=== PATIENT | female | born 1970 | race Caucasian/White ===

== ENCOUNTER 2023-10-01 19:08 | Emergency (ER) | payer OTHER, SELFPAY ==
[2023-10-01 19:10] VITALS: BP 203/103
[2023-10-01 19:32] LABS: % Basophils 0.4 % (0-2); % Immature Granulocytes 0.6 % (0-0.5); % Lymphocytes 35.2 % (20.5-51.1); % Monocytes 6.3 % (1.7-9.3); % Neutrophils 56.5 % (42.2-75.2); Absolute Eosinophils 0.1 10^3/uL (0-0.7); Absolute Immature Granulocytes 0.1 10^3/uL (0-0.05); Absolute Lymphocytes 3.5 10^3/uL (1.2-3.4); Absolute Monocytes 0.6 10^3/uL (0.1-0.6); Absolute Neutrophils 5.5 10^3/uL (1.4-6.5); Hematocrit 38.8 % (37.0-47.0); Hemoglobin 13.4 g/dL (12.0-16.0); Mean Corp Hgb Conc. 34.5 g/dL (33.0-37.0); Mean Corpuscular Hgb 33.2 pg (27.0-31.0); Mean Platelet Volume 9.6 fL (7.4-10.4); Nucleated Red Blood Cells % 0 %; Platelet Count 274 10^3/uL (130-400); Red Blood Cell Count 4.04 10^6/uL (4.20-5.40); Red Cell Dist. Width 11.9 % (11.5-14.5); White Blood Cell Count 9.8 10^3/uL (4.8-10.8)
[2023-10-01 19:53] LABS: HCG, Serum Qualitative Screen Negative
[2023-10-01 19:56] LABS: Troponin I < 0.012 ng/ml
[2023-10-01 19:57] LABS: ALT (SGPT) 41 U/L (0-35); AST (SGOT) 38 U/L (14-36); Albumin 4.9 g/dl (3.5-5.0); Alkaline Phosphatase 69 U/L (38-126); Blood Urea Nitrogen 16 mg/dl (7-17); Calcium 10.1 mg/dl (8.4-10.2); Carbon Dioxide 26 mmol/L (22-30); Chloride 102 mmol/L (98-107); Glucose 232 mg/dl (70-99); Potassium 4.3 mmol/L (3.5-5.1); Sodium 139 mmol/L (135-145); Total Bilirubin 0.4 mg/dl (0.2-1.3); Total Protein 8.2 g/dl (6.3-8.2); eGFR > 60.00
[2023-10-01 23:00] VITALS: BP 177/98
--- NOTE | 2023-10-01 23:26 | ED.GENMED ---
History of Present Illness
General
Chief Complaint: Cardiac Symptoms
Source: patient
Exam Limitations: none
Time Seen by Provider: 10/01/23 22:52
Travel History
Have you had any contact with someone who has COVID-19?: No
Do you have any symptoms of coronavirus? Fever > 100 degrees, chills, cough, shortness of breath, sore throat, loss of taste or smell, muscle aches, or headache?: No
History of Present Illness
History of Present Illness:
This is a 52 year old female that comes in with c/o pain in the left shoulder/back area that goes down into her left arm. States that he arm felt heavy and it has been keeping her up all night. States that the pain has been constant. Patient took
Ibuprofen only twice since Sunday. States that there is a burning in the left arm. Denies any fever, chills, chest pain, SOB, abd pain, nausea, vomiting, diarrhea, headache, dizziness, urinary burning.
Past History
Past History
ED Past Medical History: HTN and IDDM
ED Past Surgical History: Cholecystectomy
Review of Systems
Review of Systems
All Other Systems: ROS reviewed and negative except as documented in HPI and ROS
Constitutional: Reports no symptoms; Denies fever or chills
Respiratory: Reports no symptoms; Denies cough or trouble breathing
Cardiac: Denies chest pain
ABD/GI: Reports no symptoms; Denies abdominal pain, nausea, vomiting or diarrhea
: Reports no symptoms; Denies dysuria, frequency or urgency
Musculoskeletal: Reports other (Pain left posterior shoulder into the left upper arm, Burning)
Skin: Reports no symptoms
Neurological: Reports no symptoms; Denies dizzy or headache
Psychiatric: Reports no symptoms
Phy Exam
General Physical Exam
General Presentation: no apparent distress
General age: appears stated age
General Skin: warm and dry
General Habitus: normal
General Mental: alert
General Hydration: appears well hydrated
ENT Exam
ENT Exam: TM's normal, pharynx normal and neck supple
Eye Exam
Eye Exam: EOMI
Cardiovascular Exam
Cardiovascular Exam: regular rate/rhythm, no edema, no murmur and normal peripheral pulses
Pulmonary Exam
Pulmonary Exam: lungs clear, no respiratory distress, no rales, chest non tender, no crackles, no rhonchi, no wheezing and no cough
Gastrointestinal Exam
Gastrointestinal Exam: normal bowel sounds, non tender, soft, no organomegaly, no pulsatile mass and non distended
Musculoskeletal Exam
Musculoskeletal Exam: full ROM, no edema and other (Tenderness to palpation over the Trapeziums muscle on the left)
Skin Exam
Skin Exam: normal color, warm/dry, no rash and no petechia
Course
Orders/Labs/Results
Orders:
Orders
10/01/23 19:13
Electrocardiogram (*1) Urgent
Reason for Study: Other
Other Reason for Exam: LEFT NECK/ARM PAIN
EKG- Treatment ONCE
Test Result ONCE
10/01/23 19:16
CMP [Comprehensive Metabolic Panel] Urgent
Complete Blood Count/With Diff Urgent
HCG, Serum Qualitative Screen Urgent
Troponin I Urgent
10/01/23 23:25
Troponin I Urgent
CR Chest - 2 Views Urgent
Comment:
Reason For Exam: Left shoulder and arm pain, Chest pain
10/01/23 23:27
Acetaminophen [Tylenol] 1,000 mg PO NOW STA
Ketorolac [Toradol] 30 mg IV NOW STA
10/02/23 00:08
EKG [Electrocardiogram (*1)] Urgent
Reason for Study: Other
Other Reason for Exam: with troponin redraw
EKG- Treatment ONCE
Abnormal Lab Results
10/01/23
19:16
RBC 4.04 L 10^6/uL
(4.20-5.40)
MCH 33.2 H pg
(27.0-31.0)
Abs Immat Gran (auto) 0.1 H 10^3/uL
(0-0.05)
Absolute Lymphs (auto) 3.5 H 10^3/uL
(1.2-3.4)
Immature Gran % 0.6 H %
(0-0.5)
Creatinine 0.5 L mg/dL
(0.6-1.0)
Glucose 232 H mg/dl
(70-99)
AST 38 H U/L
(14-36)
ALT 41 H U/L
(0-35)
10/01/23 19:16
10/01/23 19:16
Glucose nonfasting. AST/ALT slightly elevated. Troponin <0.012, HCG negative.
Second Troponin <0.012,
Vital Signs
Initial and Last Documented VS:
Initial Vital Signs
Temp Pulse Resp BP Pulse Ox
98 F 110 22 203/103 100
10/01/23 19:10 10/01/23 19:10 10/01/23 19:10 10/01/23 19:10 10/01/23 19:10
Last Documented Vital Signs
Temp Pulse Resp BP Pulse Ox
98 F 84 16 146/70 99
10/01/23 19:10 10/02/23 00:18 10/02/23 00:18 10/02/23 00:18 10/02/23 00:18
MDM/Problems Addressed
Differential Diagnosis Includes:
Musculoskeletal pain, Coronary syndrome,
MDM/Problems Addressed:
This is a 52 year old female that comes in with c/o left shoulder pain that goes into the left upper arm. States that there is a burning pain in the arm and it has been constant since Sunday.
Will check labs. Troponin, Chest x-ray and ECG.
Repeat ECG: Rate 86, NSR, Normal axis. Normal QRS, ST depression V4, V5,
Back into see patient. Explained that her Chest X-ray was normal along with her second troponin. This may be musculoskeletal but due to the left arm continued pain and her diabetes, will place patient on the cardiology hot line. Patient can use
Tylenol 1000mg every 6 hours for pain. Heat or ice to the shoulder. Follow up with the family doctor. Return with increased or changing pain.
Chronic conditions affecting care: DM
Acute Exacerbation and/or Progression of Chronic Illness:
NA
*Radiology
Radiology exam reviewed: preliminary read by ED provider (Chest- Negative for active disease. )
*Pulse Oximetry
Patient hypoxic: no
*EKG
Interpreted by ED Provider?: Yes
Heart Rate: 100
Rate: tachycardiac
Rhythm: sinus
Texline: normal axis
Interval: normal interval
QRS Pattern: normal QRS
Ischemia: ST depression (V3, V4, V5, )
*Backer Up Interpretation
Rate: normal
Heart Rate: 91
Rhythm: sinus
*Critical Care Note
Total Time (30-74mins, 75-104mins- exclusive of procedures): Not Applicable
ED Attending Note
-
Portions of this chart may have been created with voice recognition software.� Occasional wrong word or��sound alike� substitutions may have occurred due to the inherent limitations of voice recognition software.
Discharge Plan
Departure
Patient Disposition: Home (Routine Discharge)
Date of Disposition: 10/02/23
Time of Disposition: 01:47
Patient with high blood pressure during this ER visit?: Yes
Condition: Good
Covid-19: Not Applicable
Discharge Problem:
Musculoskeletal pain, Chest pain
Instructions: Chest Pain (DC), Chest Pain DCA Follow Up, BLOOD PRESSURE, Musculoskeletal Pain
Referrals:
Leann Rodriguez MD [Family Provider] - Call in 1-3 days for appt
Activity Restrictions/Additional Instructions:
As discussed, your blood work shows that your liver enzymes are very slightly elevated. Both Troponin for the heart are normal. Your chest x-ray is normal. You have been place on the Cardiology hot line for further follow up with the Professor Of Spanish.
This may be all musculoskeletal in nature. You may use Tylenol 1000mg every 6 hours for pain. You may use heat or ice to the shoulder as needed for comfort. Follow up with the family doctor for recheck. IF YOU HAVE INCREAED OR CHANGING PAIN, OR YOU
HAVE ANY OTHER CONCERNS PLEASE RETURN TO THE EMERGENCYROOM.
Interventions
Interventions:
*Risk Screen - Suicide Last Done: 10/01/23 19:10
*General Assessment Last Done: 10/01/23 22:52
*Neglect/Abuse Screening Last Done: 10/01/23 22:52
*ED COVID-19 Vaccine History Last Done: 10/01/23 22:52
ED- Cardiac Assessment Last Done: 10/02/23 00:24
ED- Pulmonary Assessment Last Done: 10/02/23 00:24
[2023-10-02] MEDS: TORADOL 30 MG IV (00:15)
[2023-10-02] MEDS: TYLENOL 1000 MG PO (00:15)
[2023-10-02 00:18] VITALS: BP 146/70
[2023-10-02 01:01] LABS: Troponin I < 0.012 ng/ml
[2023-10-02 02:01] VITALS: BP 140/61
== END 2023-10-02 02:02 | disposition home or self-care (01) ==
LOC: EMR 19:08
PROVIDERS: Clinical Nurse Specialist Family Health; Emergency Medicine; EMERGENCY PHYSICIAN Emergency Medicine; FAMILY PHYSICIAN Family Medicine
DX: M79.18 Myalgia, other site (principal); M79.602 Pain in left arm; M25.512 Pain in left shoulder; R07.9 Chest pain, unspecified; R20.8 Other disturbances of skin sensation; E11.9 Type 2 diabetes mellitus without complications; I10 Essential (primary) hypertension; Z79.4 Long term (current) use of insulin; Z90.49 Acquired absence of other specified parts of digestive tract; Z88.1 Allergy status to other antibiotic agents
CPT/HCPCS: 99284; 96374; 71046; 80053; 84484; 84703; 85025; 93005